=== PATIENT | female | born 1950 | race Caucasian/White ===

== ENCOUNTER 2024-10-17 00:31 | Observation (INO) | payer MEDICARE, OTHER ==
[~2024-10-17] VITALS: Ht 157.5 cm; Wt 113.5 kg
[2024-10-17 01:19] LABS: BASOPHILS ABSOLUTE AUTO 0.06 K/mm3 (0.00-0.23); BASOPHILS PERCENT AUTO 1 % (0-2); EOSINOPHILS ABSOLUTE AUTO 0.08 K/mm3 (0.00-0.68); EOSINOPHILS PERCENT AUTO 1 % (0-6); Hematocrit 45.4 % (33.0-51.0); IMMATURE GRAN ABSOLUTE AUTO 0.04 K/mm3 (0.00-0.10); IMMATURE GRAN PERCENT AUTO 0 % (0-1); LYMPHOCYTES ABSOLUTE AUTO 1.59 K/mm3 (0.84-5.20); LYMPHOCYTES PERCENT AUTO 16 % (21-46); MONOCYTES ABSOLUTE AUTO 0.83 K/mm3 (0.16-1.47); MONOCYTES PERCENT AUTO 8 % (4-13); Mean Corpuscular HGB 29.9 pg (26.0-34.0); Mean Corpuscular Volume 90 fL (80-100); Mean Platelet Volume 10.3 fL (9.1-12.4); NEUTROPHILS PERCENT AUTO 74 % (41-73); Platelet Count 276 K/mm3 (150-400); RDW Coefficient Variation 13.6 % (11.7-14.2); RDW Standard Deviation 44.9 fL (35.1-46.3); Red Blood Cell Count 5.02 M/mm3 (3.80-5.20)
[2024-10-17 01:54] LABS: Albumin, Blood 3.3 g/dL (3.4-5.0); Albumin/Globulin Ratio 0.9 (0.8-1.8); Bilirubin, Total 0.7 mg/dL (0.1-1.0); Bun/Creatinine Ratio 17.1 (12.0-20.0); Calcium, Blood 8.3 mg/dL (8.5-10.1); Creatinine, Blood 1.11 mg/dL (0.40-1.00); Free Thyroxine 0.96 ng/dL (0.70-1.60); Globulin, Blood 3.6 g/dL (2.2-4.0); Magnesium, Blood 2.3 mg/dL (1.6-2.4); Potassium, Blood 4.5 mmol/L (3.5-5.5); Thyroid Stimulating Hormone 30.2 uIU/mL (0.360-4.800); Total Protein, Blood 6.9 g/dL (6.4-8.2)
[2024-10-17 02:23] LABS: Source, Urine Clean Catch
[2024-10-17 02:28] LABS: Bilirubin, Urine Neg (Neg); Blood, Urine 1+ (Neg); Glucose Qualitative, Urine Neg (Neg); Ketones, Urine Neg (Neg); Leukocyte Esterase, Urine 2+ (Neg); Nitrite, Urine Neg (Neg); Protein, Urine 2+ (Neg); Specific Gravity, Urine 1.015 (1.003-1.022); Urobilinogen, Urine 1+ (Normal)
[2024-10-17 02:44] LABS: Appearance, Urine Hazy (Clear); Color, Urine Yellow (P-Yellow)
[2024-10-17 02:45] LABS: Red Blood Cells, Urine 0-2 /hpf (0-2)
[2024-10-17 02:46] LABS: Amorphous Light (0-Heavy); Bacteria Mod /hpf; Calcium Oxalate Crystals Few /hpf; Squamous Epithelial Cells Many /hpf (Few)
[2024-10-17] MEDS ORDERED: Acetaminophen 325 MG TABLET PO ONE (03:05)
[2024-10-17] MEDS ORDERED: Acetaminophen 325 MG TABLET PO PRN (03:20)
[2024-10-17] MEDS ORDERED: FLU VACC TS2024-25(6MOS UP)/PF 45 MCG/0.5 ML SYRINGE IM ONE (03:20)
[2024-10-17 05:26] LABS: BASOPHILS ABSOLUTE AUTO 0.05 K/mm3 (0.00-0.23); BASOPHILS PERCENT AUTO 1 % (0-2); EOSINOPHILS ABSOLUTE AUTO 0.06 K/mm3 (0.00-0.68); EOSINOPHILS PERCENT AUTO 1 % (0-6); Hematocrit 44.2 % (33.0-51.0); Hemoglobin 14.7 g/dL (11.5-16.0); IMMATURE GRAN ABSOLUTE AUTO 0.04 K/mm3 (0.00-0.10); IMMATURE GRAN PERCENT AUTO 0 % (0-1); LYMPHOCYTES PERCENT AUTO 18 % (21-46); MONOCYTES ABSOLUTE AUTO 0.76 K/mm3 (0.16-1.47); MONOCYTES PERCENT AUTO 8 % (4-13); Mean Corpuscular HGB 29.6 pg (26.0-34.0); Mean Corpuscular HGB Conc 33.3 g/dL (31.5-36.5); Mean Corpuscular Volume 89 fL (80-100); Mean Platelet Volume 10.5 fL (9.1-12.4); NEUTROPHILS ABSOLUTE AUTO 6.64 K/mm3 (1.96-9.15); NEUTROPHILS PERCENT AUTO 72 % (41-73); Platelet Count 277 K/mm3 (150-400); RDW Coefficient Variation 13.8 % (11.7-14.2); RDW Standard Deviation 44.5 fL (35.1-46.3); Red Blood Cell Count 4.97 M/mm3 (3.80-5.20); White Blood Cell Count 9.25 K/mm3 (4.00-11.30)
[2024-10-17 06:01] LABS: Alanine Aminotransfer (ALT/SGP 24 U/L (12-78); Albumin, Blood 3.4 g/dL (3.4-5.0); Albumin/Globulin Ratio 1.1 (0.8-1.8); Alk Phos 181 U/L (50-136); Anion Gap 7 mmol/L (3-11); Aspartate Aminotrans (AST/SGOT 21 U/L (12-37); Bilirubin, Total 0.4 mg/dL (0.1-1.0); Blood Urea Nitrogen 20 mg/dL (8-24); Bun/Creatinine Ratio 18.7 (12.0-20.0); CHOL/HDL RATIO 3.1; CO2, Blood 26 mmol/L (21-32); Calcium, Blood 8.2 mg/dL (8.5-10.1); Chloride, Blood 109 mmol/L (98-108); Cholesterol 164 mg/dL (50-200); Creatinine, Blood 1.07 mg/dL (0.40-1.00); Globulin, Blood 3.1 g/dL (2.2-4.0); Glomerular Filtration Rate 55 (60-); Glucose, Blood 95 mg/dL (70-99); HDL Cholesterol 53 mg/dL (>39); LDL/HDL RATIO 1.8; Low Density Lipoprotein Chol 95 mg/dL (0-110); Magnesium, Blood 2.2 mg/dL (1.6-2.4); Potassium, Blood 4.1 mmol/L (3.5-5.5); Sodium, Blood 138 mmol/L (136-145); Total Protein, Blood 6.5 g/dL (6.4-8.2); Triglycerides 78 mg/dL (30-160); Very Low Density Lipoprot Chol 15 mg/dL (6-32)
[2024-10-17] MEDS ORDERED: Enoxaparin 40 MG/0.4 ML SYR SC SCH (09:00)
[2024-10-17] MEDS ORDERED: Aspirin 81 MG Chew PO SCH (09:00)
[2024-10-17] MEDS ORDERED: Atorvastatin 40 MG Tab PO SCH (09:00)
[2024-10-17] MEDS ORDERED: Clopidogrel Bisulfate 75 MG Tab PO SCH (09:00)
[2024-10-17 12:51] VITALS: BP 156/76
[2024-10-17] MEDS ORDERED: Lovastatin20 MG PO (13:32)
[2024-10-17] MEDS ORDERED: LEVSOD112 PO (13:32)
[2024-10-17] MEDS ORDERED: OMEP20ER PO (13:34)
[2024-10-17] MEDS ORDERED: IBUP400 PO (13:34)
[2024-10-17] MEDS ORDERED: Aspir 8181 MG PO (13:35)
[2024-10-17] MEDS ORDERED: Miconazole Nitrate 2% 85 GM PWD TOP PRN (14:15)
[2024-10-17] MEDS ORDERED: Naproxen 500 MG Tab PO PRN (14:25)
[2024-10-17 15:26] VITALS: BP 133/70
--- NOTE | 2024-10-17 18:35 | NUR ---
SHIFT SUMMARY REBECCA'S HEADACHE HAS DECREASED TO 2/10 WITH NAPROXEN. SHE STATES SHE IS JUST TIRED NOW, DID NOT SLEEP MUCH LAST NIGHT. NO OTHER ISSUES CURRENTLY. SHE IS AOX4 AND COOPERATIVE WITH CARE. SHE CONTINUES TO BE STANDBY ASSIST TO BEDSIDE COMMODE. BED IN LOW POSITION, CALL LIGHT IN REACH. SHE IS ABLE TO MAKE NEEDS KNOWN.
[2024-10-17 19:54] VITALS: BP 153/84
[2024-10-17 23:20] VITALS: BP 127/86
[2024-10-18] VITALS (7 sets, daily range): BP systolic 133–165; BP diastolic 73–92
--- NOTE | 2024-10-18 06:19 | NUR ---
SHIFT SUMMARY: Pt admitted for system of CVA and is a full code. Is alert and able to make needs known. ADLs have been SBA. denies pain or discomfort when asked.
--- NOTE | 2024-10-18 17:05 | NUR ---
PT HAS BEEN DOING WELL TODAY. CONTINUES TO HAVE A CORDERO AND WAS TREATED PER EMAR. PT IS A 1 PERSON ASSIST TO BSC. DICHARGE HAS BEEN DELAYED TILL TOMORROW PER DR RODRIGUES. ELMIRA NEWMAN WAS SENT REQUEST ABOUT PT'S BRAIN SHUNT TO SEE IF IT IS MRI COMPATABLE NO INFO HAS YET TO BE RECIEVED. CALL LIGHT IS IN REACH WILL CONTINUE TO MONITOR.
[2024-10-19 00:03] VITALS: BP 147/87
[2024-10-19 03:59] VITALS: BP 151/70
--- NOTE | 2024-10-19 04:22 | NUR ---
SHIFT SUMMARY: Pt admitted for system of CVA and is a full code. Is alert and able to make needs known. ADLs have been SBA. pain was managed with PRN medication.
[2024-10-19 07:39] VITALS: BP 142/79
[2024-10-19] MEDS ORDERED: CLOP75 PO (10:40)
[2024-10-19] MEDS ORDERED: PANT20 PO (10:41)
--- NOTE | 2024-10-19 12:58 | NUR ---
PT DISCHARGED AT 1205 NO DISTRESS NOTED. PT HAS BEEN STANDBY ASSIST TO RESTROOM AND COOPERATIVE OF ALL CARE. PT HAD PAPERWORK REVIEWED AND EDUCATIONAL MATERIAL SENT WITH PT. DAUGHTER CAME TO TRANSPORT PT HOME. MEDICATIONS WHERE CALLED INTO [facility] AND GIVEN VERBALLY. NO DISTRESS NOTED.
== END 2024-10-19 12:00 | disposition home or self-care (01) ==
LOC: ER 00:31 → ERHOLD 00:32 → MEDS 00:32
PROVIDERS: Student in an Organized Health Care Education/Training Program; ADMIT Student in an Organized Health Care Education/Training Program
DX: R47.01 Aphasia (principal); R41.82 Altered mental status, unspecified; I69.398 Other sequelae of cerebral infarction; Z88.2 Allergy status to sulfonamides; E03.9 Hypothyroidism, unspecified; Z98.2 Presence of cerebrospinal fluid drainage device
CPT/HCPCS: 70450; 70496; 70498; 71045; 80053; 80061; 81001; 82947; 83735; 84439; 84443; 85025; 87086; 93005; 93010; 93306; 96372; 96372-59; 99285-25; A9270; G0378; J1650; Q9967